=== PATIENT | female | born 1955 | race Caucasian/White ===

== ENCOUNTER → 2020-06-28 | Outpatient (CLI) | payer MEDICARE, OTHER ==
[~2020-06-28] MED LIST: ADMELOG100 UNIT/1 SQ; ALBUTEROL1.25 MG/3 INH; ASPIRIN EC81 MG PO; ATORVASTATIN CA20 MG PO; ATORVASTATIN CA40 MG PO; AUGMENTIN 875-1 EACH PO; BUMETANIDE1 MG PO; CARVEDILOL25 MG PO; CEFUROXIME500 MG PO; CIPRO500 MG PO; CLOPIDOGREL75 MG PO; COLACE 100MG C100 MG PO; COREG 25MG TAB25 MG PO; COZAAR25 MG PO; DAILY VITE1 EACH PO; DIABETA 5 MG TAB5 MG PO; DRISDOL1250 MCG PO; ENTRESTO 24 MG1 EACH PO; FEOSOL325 MG PO; FERROUS SULFAT325 M2 PO; FISH OIL EC 1,1 EACH PO; GABAPENTIN100 MG PO; GLYBURIDE5 MG PO; HUMALOG 10100 UNITS/ SC; HUMALOG MI100 UNIT/2 SQ; HYDROCODON-ACE1 EAC4 PO; IBUPROFEN600 MG PO; IMDUR ER TAB 3030 MG PO; IMDUR ER TAB 6060 MG PO; INSULIN LI100 UNIT/1 SC; ISOSORBIDE MONO30 MG PO; LANTUS INS100 UTS/M1 SC; LANTUS100 UNIT/1 SQ; LEVEMIR FL100 UNIT/1 SC; LEVEMIR100 UNIT/1 SQ; LEVOTHYROXINE100 MCG PO; LIPITOR TAB 2020 MG PO; MELATONIN 5 MG1 EAC1 PO; NITROGLYCERIN0.4 MG SL; NITROSTAT0.4 MG SL; NORVASC10 MG PO; ROPINIROLE HCL2 MG PO; SYNTHROID100 MCG PO; THERAGRAN M TAB1 EA PO
== END ==
LOC: WCC 15:57
DX: E11.622 Type 2 diabetes mellitus with other skin ulcer (principal); L89.622 Pressure ulcer of left heel, stage 2; L89.892 Pressure ulcer of other site, stage 2; L89.890 Pressure ulcer of other site, unstageable; I70.245 Atherosclerosis of native arteries of left leg with ulceration of other part of foot; R60.1 Generalized edema; Z79.4 Long term (current) use of insulin
CPT/HCPCS: G0463

== ENCOUNTER → 2020-07-05 | Outpatient (CLI) | payer MEDICARE, OTHER | LOC: WCC 15:46 | PROC: 0KBW0ZZ Excision of Left Foot Muscle, Open Approach (ICD-10-PCS; principal; 2020-07-05) | DX: L89.894 Pressure ulcer of other site, stage 4 (principal); L89.890 Pressure ulcer of other site, unstageable; L89.622 Pressure ulcer of left heel, stage 2; L89.892 Pressure ulcer of other site, stage 2; E11.622 Type 2 diabetes mellitus with other skin ulcer; I70.245 Atherosclerosis of native arteries of left leg with ulceration of other part of foot; R60.1 Generalized edema; Z79.4 Long term (current) use of insulin; E11.621 Type 2 diabetes mellitus with foot ulcer ==

== ENCOUNTER → 2020-07-12 | Outpatient (CLI) | payer MEDICARE, OTHER | LOC: WCC 15:39 | PROC: 0KBW0ZZ Excision of Left Foot Muscle, Open Approach (ICD-10-PCS; principal; 2020-07-12) | PROC: 0KBT0ZZ Excision of Left Lower Leg Muscle, Open Approach (ICD-10-PCS; 2020-07-12) | DX: L89.622 Pressure ulcer of left heel, stage 2 (principal); L89.892 Pressure ulcer of other site, stage 2; L89.890 Pressure ulcer of other site, unstageable; E11.622 Type 2 diabetes mellitus with other skin ulcer; I70.245 Atherosclerosis of native arteries of left leg with ulceration of other part of foot; R60.1 Generalized edema; Z79.4 Long term (current) use of insulin ==

== ENCOUNTER 2020-07-19 09:28 | Inpatient (IN) | payer OTHER ==
[~2020-07-19] VITALS: Ht 152.4 cm; Wt 87.1 kg
[~2020-07-19 09:28] MED LIST changes: -ALBUTEROL1.25 MG/3 INH; -CEFUROXIME500 MG PO; -COLACE 100MG C100 MG PO; -DAILY VITE1 EACH PO; -ENTRESTO 24 MG1 EACH PO; -FERROUS SULFAT325 M2 PO; -GABAPENTIN100 MG PO; -IBUPROFEN600 MG PO; -INSULIN LI100 UNIT/1 SC; -MELATONIN 5 MG1 EAC1 PO
[2020-07-19 10:07] LABS: HEMOGLOBIN 9.9 gm/dl (12.3-15.3); RED BLOOD COUNT 3.61 M/UL (4.00-5.10); WHITE BLOOD COUNT 8.2 K/UL (4.5-11.0)
[2020-07-19 10:47] LABS: BUN/CREATININE RATIO 31 (0-10)
[2020-07-19] MEDS ORDERED: ALBUTEROL1.25 MG/3 INH (12:21)
[2020-07-20 04:14] LABS: HEMOGLOBIN 8.8 gm/dl (12.3-15.3); WHITE BLOOD COUNT 6.2 K/UL (4.5-11.0)
[2020-07-20 04:17] LABS: RED BLOOD COUNT 3.24 M/UL (4.00-5.10)
[2020-07-20 04:57] LABS: BUN/CREATININE RATIO 34 (0-10)
[2020-07-22 04:14] LABS: BUN/CREATININE RATIO 31 (0-10)
[2020-07-23 02:49] LABS: BUN/CREATININE RATIO 27 (0-10)
== END 2020-07-23 17:40 | disposition home health service (06) | DRG 291 ==
LOC: ER1 09:28 → MED SURG 4 11:48 → CDU 11:48 → MED SURG 4 14:12
PROVIDERS: Internal Medicine; Physician Assistant; ADMIT Internal Medicine
DX: I11.0 Hypertensive heart disease with heart failure (principal); J96.01 Acute respiratory failure with hypoxia; J96.21 Acute and chronic respiratory failure with hypoxia; I50.23 Acute on chronic systolic (congestive) heart failure; Z20.828 Contact with and (suspected) exposure to other viral communicable diseases; I16.0 Hypertensive urgency; E11.65 Type 2 diabetes mellitus with hyperglycemia; Z89.611 Acquired absence of right leg above knee; I25.10 Atherosclerotic heart disease of native coronary artery without angina pectoris; E11.51 Type 2 diabetes mellitus with diabetic peripheral angiopathy without gangrene; I27.20 Pulmonary hypertension, unspecified; E03.9 Hypothyroidism, unspecified; F41.9 Anxiety disorder, unspecified; Z79.82 Long term (current) use of aspirin; Z79.4 Long term (current) use of insulin; Z79.899 Other long term (current) drug therapy; I25.5 Ischemic cardiomyopathy
CPT/HCPCS: 36415; 36600; 71045; 80048; 80053; 82550; 82553; 82803; 82962; 83874; 83880; 84484; 85025; 93005; 96374; 99285; U0002

== ENCOUNTER → 2020-07-26 | Outpatient (CLI) | payer OTHER ==
[~2020-07-26] MED LIST changes: +ALBUTEROL1.25 MG/3 INH; +CEFUROXIME500 MG PO; +COLACE 100MG C100 MG PO; +DAILY VITE1 EACH PO; +ENTRESTO 24 MG1 EACH PO; +FERROUS SULFAT325 M2 PO; +GABAPENTIN100 MG PO; +IBUPROFEN600 MG PO; +INSULIN LI100 UNIT/1 SC; +MELATONIN 5 MG1 EAC1 PO
== END ==
LOC: WCC 15:56
PROC: 0JBR0ZZ Excision of Left Foot Subcutaneous Tissue and Fascia, Open Approach (ICD-10-PCS; principal; 2020-07-26)
PROC: 0JBP0ZZ Excision of Left Lower Leg Subcutaneous Tissue and Fascia, Open Approach (ICD-10-PCS; 2020-07-26)
DX: L89.894 Pressure ulcer of other site, stage 4 (principal); L89.892 Pressure ulcer of other site, stage 2; Z88.1 Allergy status to other antibiotic agents; Z79.899 Other long term (current) drug therapy

== ENCOUNTER 2020-07-28 06:23 | Observation (INO) | payer OTHER ==
[~2020-07-28] VITALS: Ht 152.4 cm; Wt 87.1 kg
[~2020-07-28 06:23] MED LIST changes: -CEFUROXIME500 MG PO; -COLACE 100MG C100 MG PO; -DAILY VITE1 EACH PO; -ENTRESTO 24 MG1 EACH PO; -FERROUS SULFAT325 M2 PO; -GABAPENTIN100 MG PO; -IBUPROFEN600 MG PO; -INSULIN LI100 UNIT/1 SC; -MELATONIN 5 MG1 EAC1 PO
[2020-07-28] MEDS ORDERED: IBUPROFEN600 MG PO (06:47)
[2020-07-28 06:48] LABS: HEMOGLOBIN 10.2 gm/dl (12.3-15.3); RED BLOOD COUNT 3.78 M/UL (4.00-5.10); WHITE BLOOD COUNT 8.6 K/UL (4.5-11.0)
[2020-07-28 07:08] LABS: BUN/CREATININE RATIO 29 (0-10)
[2020-07-29 05:13] LABS: HEMOGLOBIN 9.3 gm/dl (12.3-15.3); RED BLOOD COUNT 3.44 M/UL (4.00-5.10)
[2020-07-29 05:20] LABS: WHITE BLOOD COUNT 5.8 K/UL (4.5-11.0)
[2020-07-30 05:07] LABS: HEMOGLOBIN 8.9 gm/dl (12.3-15.3); RED BLOOD COUNT 3.27 M/UL (4.00-5.10); WHITE BLOOD COUNT 6.4 K/UL (4.5-11.0)
== END 2020-07-30 17:28 | disposition home or self-care (01) ==
LOC: ER1 06:23 → CDU 08:22 → MED SURG 4 08:22
PROVIDERS: Family Medicine; Physician Assistant Medical; ADMIT Family Medicine
DX: I13.0 Hypertensive heart and chronic kidney disease with heart failure and stage 1 through stage 4 chronic kidney disease, or unspecified chronic kidney disease (principal); I50.23 Acute on chronic systolic (congestive) heart failure; J96.01 Acute respiratory failure with hypoxia; N18.30 Chronic kidney disease, stage 3 unspecified; D63.1 Anemia in chronic kidney disease; E11.22 Type 2 diabetes mellitus with diabetic chronic kidney disease; I25.5 Ischemic cardiomyopathy; I25.10 Atherosclerotic heart disease of native coronary artery without angina pectoris; E11.51 Type 2 diabetes mellitus with diabetic peripheral angiopathy without gangrene; I27.20 Pulmonary hypertension, unspecified; E03.9 Hypothyroidism, unspecified; E78.5 Hyperlipidemia, unspecified; J44.9 Chronic obstructive pulmonary disease, unspecified; Z88.1 Allergy status to other antibiotic agents; Z79.82 Long term (current) use of aspirin; Z79.01 Long term (current) use of anticoagulants; Z79.4 Long term (current) use of insulin; Z79.899 Other long term (current) drug therapy; Z20.822 Contact with and (suspected) exposure to COVID-19
CPT/HCPCS: 36415; 36600; 71045; 80048; 80053; 82550; 82553; 82803; 82962; 83735; 83874; 83880; 84484; 85025; 85027; 85610; 93005; 94664; 96372; 96374; 96375; 99285; G0378; J1940; U0002

== ENCOUNTER → 2020-08-02 | Outpatient (CLI) | payer OTHER ==
[~2020-08-02] MED LIST changes: +CEFUROXIME500 MG PO; +COLACE 100MG C100 MG PO; +DAILY VITE1 EACH PO; +ENTRESTO 24 MG1 EACH PO; +FERROUS SULFAT325 M2 PO; +GABAPENTIN100 MG PO; +IBUPROFEN600 MG PO; +INSULIN LI100 UNIT/1 SC; +MELATONIN 5 MG1 EAC1 PO
== END ==
LOC: WCC 16:00
PROC: 0KBW0ZZ Excision of Left Foot Muscle, Open Approach (ICD-10-PCS; principal; 2020-08-02)
PROC: 0KBT0ZZ Excision of Left Lower Leg Muscle, Open Approach (ICD-10-PCS; 2020-08-02)
DX: I96 Gangrene, not elsewhere classified (principal); E11.622 Type 2 diabetes mellitus with other skin ulcer; L89.892 Pressure ulcer of other site, stage 2; L89.622 Pressure ulcer of left heel, stage 2; I70.245 Atherosclerosis of native arteries of left leg with ulceration of other part of foot; I70.243 Atherosclerosis of native arteries of left leg with ulceration of ankle; E11.52 Type 2 diabetes mellitus with diabetic peripheral angiopathy with gangrene; L97.822 Non-pressure chronic ulcer of other part of left lower leg with fat layer exposed; L97.322 Non-pressure chronic ulcer of left ankle with fat layer exposed; D64.9 Anemia, unspecified; J44.9 Chronic obstructive pulmonary disease, unspecified; I11.0 Hypertensive heart disease with heart failure; I50.9 Heart failure, unspecified; I25.2 Old myocardial infarction; I25.10 Atherosclerotic heart disease of native coronary artery without angina pectoris; E11.69 Type 2 diabetes mellitus with other specified complication; M86.8X9 Other osteomyelitis, unspecified sites; Z79.4 Long term (current) use of insulin; Z88.1 Allergy status to other antibiotic agents; Z79.2 Long term (current) use of antibiotics; Z79.02 Long term (current) use of antithrombotics/antiplatelets; Z79.899 Other long term (current) drug therapy; Z86.718 Personal history of other venous thrombosis and embolism

== ENCOUNTER 2020-08-08 05:26 | Observation (INO) | payer OTHER ==
[~2020-08-08] VITALS: Ht 152.4 cm; Wt 90.9 kg
[~2020-08-08 05:26] MED LIST changes: -CEFUROXIME500 MG PO; -COLACE 100MG C100 MG PO; -DAILY VITE1 EACH PO; -ENTRESTO 24 MG1 EACH PO; -FERROUS SULFAT325 M2 PO; -GABAPENTIN100 MG PO; -INSULIN LI100 UNIT/1 SC; -MELATONIN 5 MG1 EAC1 PO
[2020-08-08 06:22] LABS: HEMOGLOBIN 9.7 gm/dl (12.3-15.3); RED BLOOD COUNT 3.56 M/UL (4.00-5.10); WHITE BLOOD COUNT 9.1 K/UL (4.5-11.0)
[2020-08-08 06:28] LABS: BUN/CREATININE RATIO 44 (0-10)
[2020-08-09 03:12] LABS: HEMOGLOBIN 9.6 gm/dl (12.3-15.3); RED BLOOD COUNT 3.52 M/UL (4.00-5.10)
[2020-08-09 03:15] LABS: WHITE BLOOD COUNT 6.5 K/UL (4.5-11.0)
[2020-08-09] MEDS ORDERED: ENTRESTO 24 MG1 EACH PO (13:22)
[2020-08-10 06:03] LABS: HEMOGLOBIN 8.3 gm/dl (12.3-15.3); WHITE BLOOD COUNT 5.9 K/UL (4.5-11.0)
[2020-08-10 06:05] LABS: RED BLOOD COUNT 3.16 M/UL (4.00-5.10)
== END 2020-08-10 16:30 | disposition home or self-care (01) ==
LOC: ER1 05:26 → CDU 09:31 → MED SURG 4 09:31
PROVIDERS: Physician Assistant Medical; ADMIT Internal Medicine
DX: I11.0 Hypertensive heart disease with heart failure (principal); I50.23 Acute on chronic systolic (congestive) heart failure; I25.5 Ischemic cardiomyopathy; I25.10 Atherosclerotic heart disease of native coronary artery without angina pectoris; J96.91 Respiratory failure, unspecified with hypoxia; D64.9 Anemia, unspecified; E11.9 Type 2 diabetes mellitus without complications; I70.245 Atherosclerosis of native arteries of left leg with ulceration of other part of foot; I83.005 Varicose veins of unspecified lower extremity with ulcer other part of foot; L97.828 Non-pressure chronic ulcer of other part of left lower leg with other specified severity; I27.20 Pulmonary hypertension, unspecified; J44.9 Chronic obstructive pulmonary disease, unspecified; E03.9 Hypothyroidism, unspecified; E78.5 Hyperlipidemia, unspecified; F41.9 Anxiety disorder, unspecified; Z79.82 Long term (current) use of aspirin; Z79.02 Long term (current) use of antithrombotics/antiplatelets; Z79.4 Long term (current) use of insulin; Z79.899 Other long term (current) drug therapy; Z20.822 Contact with and (suspected) exposure to COVID-19; Z88.1 Allergy status to other antibiotic agents; Z89.611 Acquired absence of right leg above knee
CPT/HCPCS: 36415; 71045; 80048; 80053; 82550; 82553; 82962; 83735; 83874; 83880; 84484; 85025; 85027; 93005; 94640; 94664; 96372; 96374; 96375; 99285; G0378; J0696; J1335; J1940; U0002

== ENCOUNTER → 2020-08-16 | Outpatient (CLI) | payer OTHER ==
[~2020-08-16] MED LIST changes: +CEFUROXIME500 MG PO; +COLACE 100MG C100 MG PO; +DAILY VITE1 EACH PO; +ENTRESTO 24 MG1 EACH PO; +FERROUS SULFAT325 M2 PO; +GABAPENTIN100 MG PO; +INSULIN LI100 UNIT/1 SC; +MELATONIN 5 MG1 EAC1 PO
== END ==
LOC: WCC 15:35
PROC: 0KBW0ZZ Excision of Left Foot Muscle, Open Approach (ICD-10-PCS; principal; 2020-08-16)
PROC: 0KBT0ZZ Excision of Left Lower Leg Muscle, Open Approach (ICD-10-PCS; 2020-08-16)
DX: I96 Gangrene, not elsewhere classified (principal); L89.894 Pressure ulcer of other site, stage 4; L89.622 Pressure ulcer of left heel, stage 2; E11.622 Type 2 diabetes mellitus with other skin ulcer; L97.822 Non-pressure chronic ulcer of other part of left lower leg with fat layer exposed; L97.322 Non-pressure chronic ulcer of left ankle with fat layer exposed; E11.52 Type 2 diabetes mellitus with diabetic peripheral angiopathy with gangrene; I70.245 Atherosclerosis of native arteries of left leg with ulceration of other part of foot; I70.243 Atherosclerosis of native arteries of left leg with ulceration of ankle; D64.9 Anemia, unspecified; J44.9 Chronic obstructive pulmonary disease, unspecified; I11.0 Hypertensive heart disease with heart failure; I50.9 Heart failure, unspecified; I25.10 Atherosclerotic heart disease of native coronary artery without angina pectoris; I25.2 Old myocardial infarction; E11.69 Type 2 diabetes mellitus with other specified complication; M86.8X9 Other osteomyelitis, unspecified sites; Z88.1 Allergy status to other antibiotic agents; Z79.4 Long term (current) use of insulin; Z79.02 Long term (current) use of antithrombotics/antiplatelets; Z79.2 Long term (current) use of antibiotics; Z79.899 Other long term (current) drug therapy

== ENCOUNTER → 2020-08-23 | Outpatient (CLI) | payer OTHER | LOC: WCC 15:45 | PROC: 0KBW0ZZ Excision of Left Foot Muscle, Open Approach (ICD-10-PCS; principal; 2020-08-23) | PROC: 0KBT0ZZ Excision of Left Lower Leg Muscle, Open Approach (ICD-10-PCS; 2020-08-23) | DX: I96 Gangrene, not elsewhere classified (principal); L89.622 Pressure ulcer of left heel, stage 2; L89.892 Pressure ulcer of other site, stage 2; E11.622 Type 2 diabetes mellitus with other skin ulcer; L97.329 Non-pressure chronic ulcer of left ankle with unspecified severity; E11.621 Type 2 diabetes mellitus with foot ulcer; L97.429 Non-pressure chronic ulcer of left heel and midfoot with unspecified severity; I70.245 Atherosclerosis of native arteries of left leg with ulceration of other part of foot; I70.243 Atherosclerosis of native arteries of left leg with ulceration of ankle; E11.69 Type 2 diabetes mellitus with other specified complication; M86.8X9 Other osteomyelitis, unspecified sites; D64.9 Anemia, unspecified; J44.9 Chronic obstructive pulmonary disease, unspecified; I25.10 Atherosclerotic heart disease of native coronary artery without angina pectoris; I11.0 Hypertensive heart disease with heart failure; I50.9 Heart failure, unspecified; I25.2 Old myocardial infarction; Z79.4 Long term (current) use of insulin; Z86.718 Personal history of other venous thrombosis and embolism ==

== ENCOUNTER 2020-08-31 01:03 | Observation (INO) | payer OTHER ==
[~2020-08-31] VITALS: Ht 152.4 cm; Wt 90.5 kg
[~2020-08-31 01:03] MED LIST changes: -CEFUROXIME500 MG PO; -COLACE 100MG C100 MG PO; -DAILY VITE1 EACH PO; -FERROUS SULFAT325 M2 PO; -GABAPENTIN100 MG PO; -INSULIN LI100 UNIT/1 SC; -MELATONIN 5 MG1 EAC1 PO
[2020-08-31 02:02] LABS: HEMOGLOBIN 9.4 gm/dl (12.3-15.3); RED BLOOD COUNT 3.42 M/UL (4.00-5.10); WHITE BLOOD COUNT 7.1 K/UL (4.5-11.0)
[2020-08-31 02:23] LABS: BUN/CREATININE RATIO 42 (0-10)
[2020-09-02 03:26] LABS: HEMOGLOBIN 8.5 gm/dl (12.3-15.3); RED BLOOD COUNT 3.12 M/UL (4.00-5.10); WHITE BLOOD COUNT 5.4 K/UL (4.5-11.0)
[2020-09-02] MEDS ORDERED: CEFUROXIME500 MG PO (13:38)
[2020-09-02] MEDS ORDERED: BUMETANIDE1 MG PO (13:38)
[2020-09-02] MEDS ORDERED: FEOSOL325 MG PO (15:03)
== END 2020-09-02 18:15 | disposition home health service (06) ==
LOC: ER1 01:03 → CDU 06:11 → MED SURG 4 06:11
PROVIDERS: Family Medicine; Internal Medicine Infectious Disease; ADMIT Internal Medicine
DX: I11.0 Hypertensive heart disease with heart failure (principal); I50.23 Acute on chronic systolic (congestive) heart failure; R79.89 Other specified abnormal findings of blood chemistry; E11.649 Type 2 diabetes mellitus with hypoglycemia without coma; D50.9 Iron deficiency anemia, unspecified; I49.3 Ventricular premature depolarization; I25.10 Atherosclerotic heart disease of native coronary artery without angina pectoris; E11.51 Type 2 diabetes mellitus with diabetic peripheral angiopathy without gangrene; J44.9 Chronic obstructive pulmonary disease, unspecified; E03.9 Hypothyroidism, unspecified; E78.5 Hyperlipidemia, unspecified; Z99.81 Dependence on supplemental oxygen; Z20.822 Contact with and (suspected) exposure to COVID-19; Z89.611 Acquired absence of right leg above knee; Z95.5 Presence of coronary angioplasty implant and graft; Z82.49 Family history of ischemic heart disease and other diseases of the circulatory system; Z88.1 Allergy status to other antibiotic agents; Z79.4 Long term (current) use of insulin; Z79.02 Long term (current) use of antithrombotics/antiplatelets; Z79.899 Other long term (current) drug therapy
CPT/HCPCS: 36415; 71045; 80048; 80053; 81001; 82550; 82553; 82728; 82962; 83540; 83550; 83735; 83874; 83880; 84484; 85025; 85610; 87077; 87086; 87186; 93005; 96374; 96375; 99285; G0378; J0696; J1205; J1650; J1940; U0002

== ENCOUNTER → 2020-09-06 | Outpatient (CLI) | payer OTHER ==
[~2020-09-06] MED LIST changes: +CEFUROXIME500 MG PO; +COLACE 100MG C100 MG PO; +DAILY VITE1 EACH PO; +FERROUS SULFAT325 M2 PO; +GABAPENTIN100 MG PO; +INSULIN LI100 UNIT/1 SC; +MELATONIN 5 MG1 EAC1 PO
== END ==
LOC: WCC 16:00 → LAB 16:00
PROVIDERS: Internal Medicine Infectious Disease
DX: I50.23 Acute on chronic systolic (congestive) heart failure (principal)
CPT/HCPCS: 80048; 80053; 82728; 83540; 83550

== ENCOUNTER → 2020-09-13 | Outpatient (CLI) | payer OTHER | LOC: WCC 16:00 | DX: E11.622 Type 2 diabetes mellitus with other skin ulcer (principal); L89.622 Pressure ulcer of left heel, stage 2; L89.894 Pressure ulcer of other site, stage 4; E11.69 Type 2 diabetes mellitus with other specified complication; M86.60 Other chronic osteomyelitis, unspecified site; T81.30XA Disruption of wound, unspecified, initial encounter; J44.9 Chronic obstructive pulmonary disease, unspecified; I11.0 Hypertensive heart disease with heart failure; I50.9 Heart failure, unspecified; I25.2 Old myocardial infarction; I82.409 Acute embolism and thrombosis of unspecified deep veins of unspecified lower extremity; I25.10 Atherosclerotic heart disease of native coronary artery without angina pectoris; Z79.4 Long term (current) use of insulin; I70.243 Atherosclerosis of native arteries of left leg with ulceration of ankle ==

== ENCOUNTER → 2020-09-20 | Outpatient (CLI) | payer OTHER | LOC: WCC 16:00 | DX: E11.622 Type 2 diabetes mellitus with other skin ulcer (principal); L89.622 Pressure ulcer of left heel, stage 2; L89.892 Pressure ulcer of other site, stage 2; I70.245 Atherosclerosis of native arteries of left leg with ulceration of other part of foot; I70.243 Atherosclerosis of native arteries of left leg with ulceration of ankle; R60.1 Generalized edema; Z79.4 Long term (current) use of insulin | CPT/HCPCS: 97597 ==

== ENCOUNTER → 2020-09-22 | Outpatient (CLI) | payer OTHER ==
[2020-09-22 19:23] LABS: RED BLOOD COUNT 3.61 M/UL (4.00-5.10); WHITE BLOOD COUNT 4.9 K/UL (4.5-11.0)
== END ==
LOC: LBRF 18:55
PROVIDERS: Legal Medicine
DX: E11.621 Type 2 diabetes mellitus with foot ulcer (principal); I25.5 Ischemic cardiomyopathy; R68.89 Other general symptoms and signs; I50.22 Chronic systolic (congestive) heart failure; R79.89 Other specified abnormal findings of blood chemistry; D50.9 Iron deficiency anemia, unspecified; R94.6 Abnormal results of thyroid function studies
CPT/HCPCS: 80053; 83036; 83540; 83880; 84443; 84466; 85025

== ENCOUNTER → 2020-10-01 | Outpatient (CLI) | payer OTHER | LOC: WCC 07:47 | PROC: 0HB7XZZ Excision of Abdomen Skin, External Approach (ICD-10-PCS; principal; 2020-10-01) | DX: E11.628 Type 2 diabetes mellitus with other skin complications (principal); L02.216 Cutaneous abscess of umbilicus; E11.52 Type 2 diabetes mellitus with diabetic peripheral angiopathy with gangrene; I96 Gangrene, not elsewhere classified; I12.0 Hypertensive chronic kidney disease with stage 5 chronic kidney disease or end stage renal disease; E11.22 Type 2 diabetes mellitus with diabetic chronic kidney disease; N18.6 End stage renal disease; L20.9 Atopic dermatitis, unspecified; G47.30 Sleep apnea, unspecified; J45.909 Unspecified asthma, uncomplicated; Z68.43 Body mass index [BMI] 50.0-59.9, adult; E66.01 Morbid (severe) obesity due to excess calories; Z79.4 Long term (current) use of insulin; Z79.2 Long term (current) use of antibiotics; Z79.899 Other long term (current) drug therapy ==

== ENCOUNTER → 2020-10-08 | Outpatient (CLI) | payer OTHER | LOC: WCC 10:30 | PROC: 0JBR0ZZ Excision of Left Foot Subcutaneous Tissue and Fascia, Open Approach (ICD-10-PCS; principal; 2020-10-08) | DX: T87.81 Dehiscence of amputation stump (principal); T87.54 Necrosis of amputation stump, left lower extremity; I96 Gangrene, not elsewhere classified; L89.894 Pressure ulcer of other site, stage 4; L89.622 Pressure ulcer of left heel, stage 2; L89.892 Pressure ulcer of other site, stage 2; L89.890 Pressure ulcer of other site, unstageable; E11.52 Type 2 diabetes mellitus with diabetic peripheral angiopathy with gangrene; E11.622 Type 2 diabetes mellitus with other skin ulcer; I70.245 Atherosclerosis of native arteries of left leg with ulceration of other part of foot; L97.522 Non-pressure chronic ulcer of other part of left foot with fat layer exposed; I70.243 Atherosclerosis of native arteries of left leg with ulceration of ankle; L97.329 Non-pressure chronic ulcer of left ankle with unspecified severity; D64.9 Anemia, unspecified; J44.9 Chronic obstructive pulmonary disease, unspecified; I11.0 Hypertensive heart disease with heart failure; I50.9 Heart failure, unspecified; I25.2 Old myocardial infarction; E11.69 Type 2 diabetes mellitus with other specified complication; M86.9 Osteomyelitis, unspecified; Z88.1 Allergy status to other antibiotic agents; Z79.2 Long term (current) use of antibiotics; Z79.891 Long term (current) use of opiate analgesic; Z79.02 Long term (current) use of antithrombotics/antiplatelets; Z79.899 Other long term (current) drug therapy; Z79.4 Long term (current) use of insulin; Z86.718 Personal history of other venous thrombosis and embolism; Y83.5 Amputation of limb(s) as the cause of abnormal reaction of the patient, or of later complication, without mention of misadventure at the time of the procedure ==

== ENCOUNTER → 2020-10-18 | Outpatient (CLI) | payer OTHER | LOC: LBRF 18:13 | PROVIDERS: Legal Medicine | DX: I50.22 Chronic systolic (congestive) heart failure (principal); I25.5 Ischemic cardiomyopathy | CPT/HCPCS: 80053; 83880 ==

== ENCOUNTER → 2020-10-27 | Outpatient (CLI) | payer OTHER | LOC: WCC 14:00 | DX: L89.894 Pressure ulcer of other site, stage 4 (principal); T87.81 Dehiscence of amputation stump; L89.622 Pressure ulcer of left heel, stage 2; L89.892 Pressure ulcer of other site, stage 2; L89.890 Pressure ulcer of other site, unstageable; E11.51 Type 2 diabetes mellitus with diabetic peripheral angiopathy without gangrene; I70.245 Atherosclerosis of native arteries of left leg with ulceration of other part of foot; I70.243 Atherosclerosis of native arteries of left leg with ulceration of ankle; R60.1 Generalized edema; I25.2 Old myocardial infarction; Z89.422 Acquired absence of other left toe(s); Z88.1 Allergy status to other antibiotic agents; Z79.4 Long term (current) use of insulin; Z79.02 Long term (current) use of antithrombotics/antiplatelets; Z79.2 Long term (current) use of antibiotics; Z79.899 Other long term (current) drug therapy ==

== ENCOUNTER → 2020-11-24 | Outpatient (CLI) | payer OTHER | LOC: WCC 14:30 | DX: T87.81 Dehiscence of amputation stump (principal); L89.622 Pressure ulcer of left heel, stage 2; L89.892 Pressure ulcer of other site, stage 2; L89.890 Pressure ulcer of other site, unstageable; E11.622 Type 2 diabetes mellitus with other skin ulcer; L97.929 Non-pressure chronic ulcer of unspecified part of left lower leg with unspecified severity; E11.51 Type 2 diabetes mellitus with diabetic peripheral angiopathy without gangrene; I70.245 Atherosclerosis of native arteries of left leg with ulceration of other part of foot; I70.243 Atherosclerosis of native arteries of left leg with ulceration of ankle; R60.1 Generalized edema; Z89.422 Acquired absence of other left toe(s); Z88.1 Allergy status to other antibiotic agents; Z79.4 Long term (current) use of insulin; Z79.891 Long term (current) use of opiate analgesic; Z79.2 Long term (current) use of antibiotics; Z79.02 Long term (current) use of antithrombotics/antiplatelets; Z79.899 Other long term (current) drug therapy ==

== ENCOUNTER → 2020-12-08 | Outpatient (CLI) | payer OTHER | LOC: WCC 11:00 | DX: E11.9 Type 2 diabetes mellitus without complications (principal); I70.202 Unspecified atherosclerosis of native arteries of extremities, left leg; R60.1 Generalized edema; Z79.4 Long term (current) use of insulin | CPT/HCPCS: G0463 ==

== ENCOUNTER 2020-12-30 06:23 | Observation (INO) | payer OTHER ==
[~2020-12-30] VITALS: Ht 152.4 cm; Wt 90.7 kg
[~2020-12-30 06:23] MED LIST changes: -COLACE 100MG C100 MG PO; -DAILY VITE1 EACH PO; -FERROUS SULFAT325 M2 PO; -GABAPENTIN100 MG PO; -INSULIN LI100 UNIT/1 SC; -MELATONIN 5 MG1 EAC1 PO
[2020-12-30 06:45] LABS: HEMOGLOBIN 9.7 gm/dl (12.3-15.3); RED BLOOD COUNT 3.35 M/UL (4.00-5.10); WHITE BLOOD COUNT 6.1 K/UL (4.5-11.0)
[2020-12-30] MEDS ORDERED: GABAPENTIN100 MG PO (10:35)
[2020-12-30] MEDS ORDERED: FERROUS SULFAT325 M2 PO (12:33)
[2020-12-30] MEDS ORDERED: MELATONIN 5 MG1 EAC1 PO (12:34)
[2020-12-30] MEDS ORDERED: DAILY VITE1 EACH PO (12:35)
[2020-12-30] MEDS ORDERED: COLACE 100MG C100 MG PO (12:35)
[2020-12-30] MEDS ORDERED: INSULIN LI100 UNIT/1 SC (14:38)
[2020-12-31 04:47] LABS: HEMOGLOBIN 8.6 gm/dl (12.3-15.3); WHITE BLOOD COUNT 5.7 K/UL (4.5-11.0)
[2020-12-31 05:12] LABS: RED BLOOD COUNT 2.96 M/UL (4.00-5.10)
--- NOTE | 2021-01-01 15:06 | NUR ---
REPORT CALLED TO CARRILLO AT [facility].
== END 2021-01-01 14:30 | disposition home or self-care (01) ==
LOC: ER1 06:23 → CDU 08:24 → MED SURG 4 08:24
PROVIDERS: Family Medicine; Physician Assistant Medical; ADMIT Internal Medicine
DX: I13.0 Hypertensive heart and chronic kidney disease with heart failure and stage 1 through stage 4 chronic kidney disease, or unspecified chronic kidney disease (principal); E11.22 Type 2 diabetes mellitus with diabetic chronic kidney disease; N18.30 Chronic kidney disease, stage 3 unspecified; I50.23 Acute on chronic systolic (congestive) heart failure; D63.1 Anemia in chronic kidney disease; N17.9 Acute kidney failure, unspecified; I27.20 Pulmonary hypertension, unspecified; N30.00 Acute cystitis without hematuria; B96.29 Other Escherichia coli [E. coli] as the cause of diseases classified elsewhere; J96.11 Chronic respiratory failure with hypoxia; I25.10 Atherosclerotic heart disease of native coronary artery without angina pectoris; E11.51 Type 2 diabetes mellitus with diabetic peripheral angiopathy without gangrene; E03.9 Hypothyroidism, unspecified; J44.9 Chronic obstructive pulmonary disease, unspecified; I25.5 Ischemic cardiomyopathy; E11.69 Type 2 diabetes mellitus with other specified complication; M86.8X9 Other osteomyelitis, unspecified sites; E78.5 Hyperlipidemia, unspecified; Z20.822 Contact with and (suspected) exposure to COVID-19; Z16.12 Extended spectrum beta lactamase (ESBL) resistance; Z95.1 Presence of aortocoronary bypass graft; Z89.611 Acquired absence of right leg above knee; Z88.1 Allergy status to other antibiotic agents; Z79.82 Long term (current) use of aspirin; Z79.02 Long term (current) use of antithrombotics/antiplatelets; Z79.4 Long term (current) use of insulin; Z79.899 Other long term (current) drug therapy
CPT/HCPCS: 36415; 36600; 71045; 80048; 80053; 81001; 82550; 82553; 82803; 82962; 83735; 83874; 83880; 84484; 85025; 85027; 87040; 87077; 87086; 87186; 93005; 94640; 94664; 94760; 96374; 96375; 96376; 99285; G0378; J0696; J1335; J1940; U0002

== ENCOUNTER 2021-03-27 04:16 | Emergency (ER) | payer MEDICARE ==
[~2021-03-27 04:16] MED LIST changes: +COLACE 100MG C100 MG PO; +DAILY VITE1 EACH PO; +FERROUS SULFAT325 M2 PO; +GABAPENTIN100 MG PO; +INSULIN LI100 UNIT/1 SC; +MELATONIN 5 MG1 EAC1 PO
[2021-03-27 04:38] LABS: HEMOGLOBIN 9.9 gm/dl (12.3-15.3); RED BLOOD COUNT 3.68 M/UL (4.00-5.10); WHITE BLOOD COUNT 9.6 K/UL (4.5-11.0)
[2021-03-27 05:16] LABS: BUN/CREATININE RATIO 38 (0-10)
== END 2021-03-27 10:00 | disposition home or self-care (01) ==
LOC: ER1 04:16
PROVIDERS: Emergency Medicine; Student in an Organized Health Care Education/Training Program
DX: I11.0 Hypertensive heart disease with heart failure (principal); I50.9 Heart failure, unspecified; J44.9 Chronic obstructive pulmonary disease, unspecified; E11.9 Type 2 diabetes mellitus without complications; Z90.89 Acquired absence of other organs; Z20.822 Contact with and (suspected) exposure to COVID-19
CPT/HCPCS: 71045; 80048; 80053; 82550; 82553; 82962; 83874; 83880; 84484; 85025; 93005; 96374; 96375; 99285; U0002

== ENCOUNTER 2021-07-06 19:13 | Emergency (ER) | payer MEDICARE ==
[2021-07-06 20:12] LABS: HEMOGLOBIN 9.4 gm/dl (12.3-15.3); RED BLOOD COUNT 3.58 M/UL (4.00-5.10); WHITE BLOOD COUNT 5.3 K/UL (4.5-11.0)
[2021-07-06 20:34] LABS: BUN/CREATININE RATIO 46 (0-10)
== END 2021-07-06 22:50 | disposition home or self-care (01) ==
LOC: ER1 19:13
PROVIDERS: Family Medicine
DX: E11.65 Type 2 diabetes mellitus with hyperglycemia (principal); E11.22 Type 2 diabetes mellitus with diabetic chronic kidney disease; I13.0 Hypertensive heart and chronic kidney disease with heart failure and stage 1 through stage 4 chronic kidney disease, or unspecified chronic kidney disease; N18.9 Chronic kidney disease, unspecified; D63.1 Anemia in chronic kidney disease; I50.23 Acute on chronic systolic (congestive) heart failure; J96.12 Chronic respiratory failure with hypercapnia; J96.11 Chronic respiratory failure with hypoxia; E11.40 Type 2 diabetes mellitus with diabetic neuropathy, unspecified; J44.9 Chronic obstructive pulmonary disease, unspecified; E03.9 Hypothyroidism, unspecified; I25.10 Atherosclerotic heart disease of native coronary artery without angina pectoris; E11.51 Type 2 diabetes mellitus with diabetic peripheral angiopathy without gangrene; Z89.611 Acquired absence of right leg above knee; Z89.422 Acquired absence of other left toe(s); Z79.02 Long term (current) use of antithrombotics/antiplatelets; Z88.1 Allergy status to other antibiotic agents; Z95.1 Presence of aortocoronary bypass graft; Z79.4 Long term (current) use of insulin
CPT/HCPCS: 36600; 71045; 80053; 82550; 82553; 82803; 83874; 83880; 84484; 85025; 86140; 93005; 94760; 99284

== ENCOUNTER 2021-09-04 15:27 | Inpatient (IN) | payer OTHER ==
[~2021-09-04] VITALS: Ht 154.9 cm; Wt 90.9 kg
[2021-09-04 18:01] LABS: HEMOGLOBIN 8.9 gm/dl (12.3-15.3); RED BLOOD COUNT 3.46 M/UL (4.00-5.10); WHITE BLOOD COUNT 8.2 K/UL (4.5-11.0)
[2021-09-04] MEDS ORDERED: PROTONIX 40 MG40 M1 PO (19:09)
[2021-09-05 05:36] LABS: HEMOGLOBIN 9.3 gm/dl (12.3-15.3); RED BLOOD COUNT 3.62 M/UL (4.00-5.10); WHITE BLOOD COUNT 7.5 K/UL (4.5-11.0)
[2021-09-06 05:01] LABS: HEMOGLOBIN 8.9 gm/dl (12.3-15.3); RED BLOOD COUNT 3.51 M/UL (4.00-5.10)
[2021-09-06 05:06] LABS: WHITE BLOOD COUNT 11.4 K/UL (4.5-11.0)
--- NOTE | 2021-09-06 07:17 | NUR ---
critical potassium of 6.[address] Root: order for 10 units IV insulin, 1 amp D50, and 15 grams po kayexalate and recheck potassium 2 hours after the above is given.
--- NOTE | 2021-09-06 07:19 | NUR ---
Dr. Abdi ordered pt to have mora placed to monitor urine. pt only had 50ml output. Reported to Dr. Abdi after catheter placed. Urine sent to lab.
--- NOTE | 2021-09-06 09:38 | NUR ---
0938- CRITICAL POTASSIUM OF 5.[address] HOLMAN. ORDER TO GIVE KAYEXALATE 15 PO.
[2021-09-06 11:14] LABS: ANTISTREPTOLYSIN O AB 160.6 IU/mL (0.0-200.0); COMPLEMENT C3, SERUM 100 mg/dL (82-167); COMPLEMENT C4, SERUM 23 mg/dL (12-38); HBSAG SCREEN Negative (Negative); HEP A AB, IGM Negative (Negative); HEP B CORE AB, IGM Negative (Negative); HEP C VIRUS AB <0.1 (0.0-0.9)
[2021-09-06 12:14] LABS: ANTI-DSDNA ANTIBODIES 1 IU/mL (0-9)
[2021-09-07 04:41] LABS: HEMOGLOBIN 9.3 gm/dl (12.3-15.3); RED BLOOD COUNT 3.64 M/UL (4.00-5.10); WHITE BLOOD COUNT 11.1 K/UL (4.5-11.0)
[2021-09-07 13:11] LABS: ANTIHISTONE ANTIBODIES 0.7 Units (0.0-0.9)
[2021-09-07 14:11] LABS: A/G RATIO 0.7 (0.7-1.7); ALBUMIN 2.4 g/dL (2.9-4.4); ALPHA-1-GLOBULIN 0.3 g/dL (0.0-0.4); ALPHA-2-GLOBULIN 0.8 g/dL (0.4-1.0); BETA GLOBULIN 1.1 g/dL (0.7-1.3); GAMMA GLOBULIN 1.5 g/dL (0.4-1.8); GLOBULIN, TOTAL 3.6 g/dL (2.2-3.9); IMMUNOGLOBULIN A, QN, SERUM 663 mg/dL (87-352); IMMUNOGLOBULIN G, QN, SERUM 1214 mg/dL (586-1602); IMMUNOGLOBULIN M, QN, SERUM 71 mg/dL (26-217); M-SPIKE Not Observed g/dL (Not Observed)
[2021-09-07 15:11] LABS: CREATININE, URINE 58.5 mg/dL (Not Estab.)
[2021-09-08 03:59] LABS: HEMOGLOBIN 9.1 gm/dl (12.3-15.3); RED BLOOD COUNT 3.57 M/UL (4.00-5.10); WHITE BLOOD COUNT 9.6 K/UL (4.5-11.0)
[2021-09-09 04:38] LABS: HEMOGLOBIN 9.3 gm/dl (12.3-15.3); RED BLOOD COUNT 3.62 M/UL (4.00-5.10); WHITE BLOOD COUNT 11.7 K/UL (4.5-11.0)
[2021-09-09 15:15] LABS: ANTIMYELOPEROXIDASE (MPO) ABS <9.0 U/mL (0.0-9.0); ANTIPROTEINASE 3 (PR-3) ABS <3.5 U/mL (0.0-3.5); ATYPICAL PANCA <1:20 titer (Neg:<1:20); CYTOPLASMIC (C-ANCA) <1:20 titer (Neg:<1:20); PERINUCLEAR (P-ANCA) <1:20 titer (Neg:<1:20)
[2021-09-10 09:32] LABS: RED BLOOD COUNT 3.86 M/UL (4.00-5.10); WHITE BLOOD COUNT 13.8 K/UL (4.5-11.0)
[2021-09-11 03:13] LABS: RED BLOOD COUNT 3.87 M/UL (4.00-5.10); WHITE BLOOD COUNT 13.6 K/UL (4.5-11.0)
[2021-09-12 06:08] LABS: HEMOGLOBIN 9.9 gm/dl (12.3-15.3); RED BLOOD COUNT 3.86 M/UL (4.00-5.10); WHITE BLOOD COUNT 14.1 K/UL (4.5-11.0)
--- NOTE | 2021-09-12 09:45 | NUR ---
pt has returned from her procedure, denies needs or pain at this time, no hematuria in her mora. she has her call pang and phone in reach.
--- NOTE | 2021-09-12 15:50 | NUR ---
urine is yellow in mora tubing and drainage bag, no blood noted
[2021-09-13 06:39] LABS: HEMOGLOBIN 9.8 gm/dl (12.3-15.3); RED BLOOD COUNT 3.86 M/UL (4.00-5.10); WHITE BLOOD COUNT 14.4 K/UL (4.5-11.0)
[2021-09-17 04:29] LABS: HEMOGLOBIN 8.5 gm/dl (12.3-15.3); RED BLOOD COUNT 3.43 M/UL (4.00-5.10); WHITE BLOOD COUNT 9.6 K/UL (4.5-11.0)
[2021-09-22] MEDS ORDERED: NYSTATIN60 GM TOP (16:21)
[2021-09-24 14:29] LABS: HEMOGLOBIN 8.5 gm/dl (12.3-15.3); RED BLOOD COUNT 3.32 M/UL (4.00-5.10); WHITE BLOOD COUNT 7.2 K/UL (4.5-11.0)
[2021-09-27 04:18] LABS: HEMOGLOBIN 8.3 gm/dl (12.3-15.3); RED BLOOD COUNT 3.23 M/UL (4.00-5.10); WHITE BLOOD COUNT 6.1 K/UL (4.5-11.0)
--- NOTE | 2021-09-29 22:02 | NUR ---
PT TRANSPORTED TO CT BY RESOURCE RN AND COLD REDUCTION ROLLER.
--- NOTE | 2021-09-29 22:14 | NUR ---
PT TRANSPORTED FROM CT BACK TO ROOM 4108 BY RESOURCE RN AND GIZZARD PULLER.
[2021-09-30] MEDS ORDERED: POLYETHYLENE GL17 GM PO (11:55)
[2021-09-30] MEDS ORDERED: STIMULANT LAXA1 EACH PO (11:55)
[2021-09-30] MEDS ORDERED: TORSEMIDE20 MG PO (11:55)
[2021-09-30] MEDS ORDERED: FERROUS GLUCON324 M2 PO (12:00)
[2021-09-30] MEDS ORDERED: TYLENOL 8 HOUR650 MG PO (12:14)
[2021-09-30] MEDS ORDERED: GABAPENTIN100 MG PO (12:22)
--- NOTE | 2021-09-30 14:08 | NUR ---
AMBULANCE SERVICE CALLED FOR TRANSPORT, REPORT CALLED TO SAHARA PRUETT RN AT [facility]
== END 2021-09-30 20:22 | DRG 682 ==
LOC: ER1 15:27 → MED SURG 4 17:35 → CDU 17:35 → MED SURG 4 19:19
PROVIDERS: Emergency Medicine; Internal Medicine; Internal Medicine Infectious Disease; Internal Medicine Nephrology; ADMIT Internal Medicine
PROC: 0TB03ZX Excision of Right Kidney, Percutaneous Approach, Diagnostic (ICD-10-PCS; principal; 2021-09-12)
PROC: 02HV33Z Insertion of Infusion Device into Superior Vena Cava, Percutaneous Approach (ICD-10-PCS; 2021-09-18)
PROC: B548ZZA Ultrasonography of Superior Vena Cava, Guidance (ICD-10-PCS; 2021-09-18)
DX: N17.0 Acute kidney failure with tubular necrosis (principal); J96.21 Acute and chronic respiratory failure with hypoxia; I50.23 Acute on chronic systolic (congestive) heart failure; I13.0 Hypertensive heart and chronic kidney disease with heart failure and stage 1 through stage 4 chronic kidney disease, or unspecified chronic kidney disease; N30.00 Acute cystitis without hematuria; D69.0 Allergic purpura; B37.89 Other sites of candidiasis; E87.0 Hyperosmolality and hypernatremia; N18.30 Chronic kidney disease, stage 3 unspecified; I25.10 Atherosclerotic heart disease of native coronary artery without angina pectoris; E11.621 Type 2 diabetes mellitus with foot ulcer; E11.22 Type 2 diabetes mellitus with diabetic chronic kidney disease; I87.2 Venous insufficiency (chronic) (peripheral); E03.9 Hypothyroidism, unspecified; E87.5 Hyperkalemia; I73.9 Peripheral vascular disease, unspecified; L89.312 Pressure ulcer of right buttock, stage 2; L89.152 Pressure ulcer of sacral region, stage 2; L89.892 Pressure ulcer of other site, stage 2; E87.6 Hypokalemia; K59.00 Constipation, unspecified; B96.20 Unspecified Escherichia coli [E. coli] as the cause of diseases classified elsewhere; D50.9 Iron deficiency anemia, unspecified; B96.1 Klebsiella pneumoniae [K. pneumoniae] as the cause of diseases classified elsewhere; E11.51 Type 2 diabetes mellitus with diabetic peripheral angiopathy without gangrene; I25.5 Ischemic cardiomyopathy; E78.5 Hyperlipidemia, unspecified; E66.9 Obesity, unspecified; E11.40 Type 2 diabetes mellitus with diabetic neuropathy, unspecified; J44.9 Chronic obstructive pulmonary disease, unspecified; Z89.611 Acquired absence of right leg above knee; E11.21 Type 2 diabetes mellitus with diabetic nephropathy; Z95.820 Peripheral vascular angioplasty status with implants and grafts; Z90.49 Acquired absence of other specified parts of digestive tract; Z98.890 Other specified postprocedural states; Z88.8 Allergy status to other drugs, medicaments and biological substances; Z83.3 Family history of diabetes mellitus; Z79.899 Other long term (current) drug therapy; Z79.4 Long term (current) use of insulin; Z99.81 Dependence on supplemental oxygen; R53.81 Other malaise; Z99.3 Dependence on wheelchair; Z99.2 Dependence on renal dialysis; Z79.84 Long term (current) use of oral hypoglycemic drugs; Z79.82 Long term (current) use of aspirin; Z68.38 Body mass index [BMI] 38.0-38.9, adult; L23.9 Allergic contact dermatitis, unspecified cause; N26.9 Renal sclerosis, unspecified
CPT/HCPCS: 36415; 36600; 70450; 71045; 77012; 80048; 80053; 80074; 81001; 82043; 82140; 82270; 82570; 82728; 82784; 82803; 82962; 83520; 83540; 83550; 83605; 83735; 83880; 84100; 84132; 84155; 84156; 84165; 85007; 85025; 85027; 85610; 85652; 85730; 86038; 86060; 86140; 86160; 86225; 86256; 86334; 87040; 87077; 87086; 87186; 88305; 88313; 88346; 88348; 93971; 94760; 96374; 96375; 97110; 97110-GP-CQ; 97162; 97167; 97530; 97530-GP-CQ; 97535; 99285; A6212; J0696; J1100; J1200; J1335; J1644; J1756; J2920; J2930; J7030; P9047; Q4081; Q5106; U0002